=== PATIENT | female | born 1955 | race Caucasian/White ===

== ENCOUNTER 2024-08-17 14:59 | Outpatient (CLI) | payer MEDICARE | END 2024-08-17 15:00 | disposition home or self-care (01) | LOC: SCSRAD 14:59 | PROVIDERS: ATTEND Family Medicine | DX: M54.50 Low back pain, unspecified (principal); M48.061 Spinal stenosis, lumbar region without neurogenic claudication; M43.16 Spondylolisthesis, lumbar region; M43.17 Spondylolisthesis, lumbosacral region | CPT/HCPCS: 72120 ==

== ENCOUNTER 2025-05-22 09:55 | Outpatient (CLI) | payer MEDICARE | END 2025-05-22 09:56 | disposition home or self-care (01) | LOC: SCSRAD 09:55 | PROVIDERS: ATTEND Family Medicine | DX: M25.511 Pain in right shoulder (principal); M19.011 Primary osteoarthritis, right shoulder ==